=== PATIENT | male | born 1965 | race African-American/Black ===

== ENCOUNTER 2022-02-04 16:04 | Emergency (ER) | payer MEDICAID, OTHER ==
[~2022-02-04] VITALS: Ht 162.6 cm; Wt 92.7 kg
[2022-02-04 16:49] LABS: Basophils # (auto) 0.1 10 ^3/uL (0-0.2); Basophils % (auto) 1.5 % (0.0-2.0); Eosinophils # (auto) 0.1 10 ^3/uL (0-0.8); Eosinophils % (auto) 2.8 % (0.0-7.0); Hematocrit 43.1 % (41.0-53.0); Hemoglobin 14.9 g/dL (13.5-17.5); Lymphocytes # (auto) 1.5 10 ^3/uL (0.4-5.4); Lymphocytes % (auto) 29.9 % (10.0-50.0); Mean Corpuscular Hemoglobin 28.7 pg (28.0-32.0); Mean Corpuscular Hgb Conc. 34.6 g/dL (32.0-36.0); Monocytes # (auto) 0.5 10 ^3/uL (0-1.3); Monocytes % (auto) 9.1 % (0.0-12.0); Neutrophils # (auto) 2.8 10 ^3/uL (1.6-8.6); Neutrophils % (auto) 56.7 % (37.0-80.0); Nucleated Red Blood Cells % 0.2 %; Red Blood Cells 5.19 10^6/uL (4.5-5.90); Red Cell Distribution Width 13.4 % (11.8-14.3)
[2022-02-04 17:09] LABS: Albumin 4.5 g/dL (3.4-5.0); BUN/Creatinine Ratio 14.4; Calcium 8.7 mg/dL (8.5-10.1); Magnesium 2.3 mg/dL (1.6-2.6); Potassium 3.3 mmol/L (3.5-5.1)
[2022-02-04 17:12] LABS: Bilirubin, Total 1.2 mg/dL (0.2-1.0)
[2022-02-04 18:29] LABS: INR 1.01 (0.9-1.15)
[2022-02-04] MEDS ORDERED: cloNIDine HCL 0.1 MG TAB PO ONE (18:45)
[2022-02-04 19:55] VITALS: BP 151/109
== END 2022-02-04 20:45 | disposition left against medical advice (07) ==
LOC: ER 16:04
DX: R55 Syncope and collapse (principal); I10 Essential (primary) hypertension
CPT/HCPCS: 36415; 70450; 80053; 83735; 84443; 84484; 85025; 85610; 93005